=== PATIENT | male | born 1990 | race Caucasian/White ===

== ENCOUNTER 2019-01-27 17:46 | Emergency (ER) | payer OTHER ==
--- NOTE | 2019-01-27 18:29 | RAD ---
LEFT SHOULDER RADIOGRAPHS THREE VIEWS: 01/27/2019 PROVIDED CLINICAL HISTORY: Shoulder injury. FINDINGS: There is no evidence for fracture. The glenohumeral relationship appears normal. The acromioclavicu lar distance is at the upper limits of normal. The coracoclavicular distance appears normal. The vi sualized left lung field appears clear. IMPRESSION: Widening of the acromioclavicular distance, which may reflect low grade acromioclavicular injury. Co rrelate clinically. POS: [facility]
== END 2019-01-27 18:45 | disposition home or self-care (01) ==
LOC: MADERS 17:46
DX: S43.52XA Sprain of left acromioclavicular joint, initial encounter (principal); S43.402A Unspecified sprain of left shoulder joint, initial encounter; G47.30 Sleep apnea, unspecified; E03.9 Hypothyroidism, unspecified; E78.5 Hyperlipidemia, unspecified; F41.9 Anxiety disorder, unspecified; F32.9 Major depressive disorder, single episode, unspecified; W19.XXXA Unspecified fall, initial encounter

== ENCOUNTER 2021-07-06 00:58 | Emergency (ER) | payer OTHER ==
[2021-07-06 12:21] LABS: HIV (1/2) Antibody/Antigen Non-Reactive (NonReactive); HIV 1/2 INDEX 0.11 S/CO (<1.00); Hep C IgG Ab Non-Reactive (NonReactive); Hep C Index 0.06 S/CO (0-0.79)
[2021-07-06 12:37] LABS: Hep B Surf AB Reactive (NonReactive)
== END 2021-07-06 02:00 | disposition home or self-care (01) ==
LOC: MADERS 00:58
DX: Z77.21 Contact with and (suspected) exposure to potentially hazardous body fluids (principal); E03.9 Hypothyroidism, unspecified; E78.5 Hyperlipidemia, unspecified; E78.00 Pure hypercholesterolemia, unspecified
CPT/HCPCS: 36415; 86706; 86803; 87389; 99283